=== PATIENT | male | born 1995 | race African-American/Black ===

== ENCOUNTER 2024-08-23 12:28 | Inpatient (IN) | payer MEDICAID ==
[~2024-08-23] VITALS: Ht 188 cm; Wt 74.3 kg
[2024-08-23 13:11] VITALS: O2SAT 95
[2024-08-23 13:43] LABS: ANION GAP 8 mmol/L (8-16); CALCIUM, TOTAL 8.6 mg/dL (8.8-10.5); CARBON DIOXIDE 27 mmol/L (22-29); CHLORIDE 102 mmol/L (98-107); CREATININE 0.75 mg/dL (0.60-1.30); GLOMERULAR FILTR. RATE CALC > 60 mL/min (>60); GLUCOSE,RANDOM 78 mg/dL (70-110); POTASSIUM 3.7 mmol/L (3.5-5.1); SODIUM SERUM 137 mmol/L (136-145); UREA NITROGEN, BLOOD 7 mg/dL (7-18)
[2024-08-23 13:44] LABS: BASOPHILS % (AUTO) 0.2 % (0.0-2.0); HEMATOCRIT 43.1 % (41-53); HEMOGLOBIN 13.5 g/dL (13.5-17.5); LYMPHOCYTES # (AUTO) 0.9 K/uL (1.0-4.8); LYMPHOCYTES % (AUTO) 7.2 % (22.0-44.0); MEAN CORPUSCULAR HEMOGLOBIN 25.3 pg (26.0-34.0); MEAN CORPUSCULAR HGB CONC 31.3 G/dL (31.0-37.0); MEAN CORPUSCULAR VOLUME 81 fL (80-100); MONOCYTES # (AUTO) 0.4 K/uL (0.1-1.0); MONOCYTES % (AUTO) 3.5 % (2.0-9.0); NEUTROPHILS # (AUTO) 10.9 K/uL (1.8-7.7); PLATELET COUNT (AUTO) 226 K/uL (150-450); RED BLOOD CELL COUNT(AUTO) 5.33 MIL/uL (4.50-5.90); RED CELL DISTRIBUTION WIDTH 16.7 % (11.5-14.5); WHITE BLOOD COUNT (AUTO) 12.4 K/uL (4.5-11.0)
[2024-08-23 13:49] LABS: NEUTROPHILS % (AUTO) 88.1 % (40.0-70.0)
[2024-08-23 13:54] LABS: COVID AG,FIA SOURCE NASAL SWAB
[2024-08-23 14:03] LABS: ALCOHOL, URINE DRUG SCREEN NEGATIVE (NEGATIVE); AMPHET/METH SCREEN,URINE NEGATIVE (NEGATIVE); BARBITURATE SCREEN, URINE NEGATIVE (NEGATIVE); BENZODIAZEPINES SCREEN,URINE NEGATIVE (NEGATIVE); CANNABINOID SCREEN,URINE POSITIVE (NEGATIVE); COCAINE SCREEN,URINE NEGATIVE (NEGATIVE); METHADONE SCREEN, URINE NEGATIVE (NEGATIVE); OPIATE SCREEN,URINE NEGATIVE (NEGATIVE); PHENCYCLIDINE SCREEN,URINE NEGATIVE (NEGATIVE)
[2024-08-23 14:04] LABS: APPEARANCE,URINE CLEAR (CLEAR); BILIRUBIN,URINE NEGATIVE (NEGATIVE); COLOR,URINE LIGHT YELLOW (YELLOW); GLUCOSE, URINE (UA) NEGATIVE (NEGATIVE); KETONES,URINE NEGATIVE (NEGATIVE); LEUKOCYTE ESTERASE ,URINE NEGATIVE (NEGATIVE); NITRATE,URINE NEGATIVE (NEGATIVE); OCCULT BLOOD,URINE NEGATIVE (NEGATIVE); PROTEIN,URINE NEGATIVE (NEGATIVE); SPECIFIC GRAVITIY, URINE 1.011 (1.003-1.030); UROBILINOGEN,URINE <=1.0 mg/dL (<=1.0)
[2024-08-23] MEDS: DiphenhydrAMINE HCL 50 MG/ML VIAL IM ONE (14:04)
[2024-08-23] MEDS: HALOPERIDOL LACTATE 5 MG/ML VIAL IM ONE (14:04)
[2024-08-23] MEDS: LORazepam 2 MG/ML VIAL IM ONE (14:04)
[2024-08-23 14:05] LABS: ALCOHOL, BLOOD (SERUM) < 3 mg/dL (0-10)
[2024-08-23 14:37] LABS: SARS-COV2 (COVID) ANTIGEN,FIA Negative (Negative)
[2024-08-23] MEDS ORDERED: TUBERCULIN, PURIFIED PROTEIN DERIVATIVE 5 TU/0.1 ML SYRINGE ID ONE (14:45)
[2024-08-23] MEDS ORDERED: GuaiFENesin/D-METHORPHAN [SUGAR-FREE] 200-20MG/10 ML SYRUP UDCUP PO PRN (14:45)
[2024-08-23] MEDS ORDERED: MELATONIN 5 MG TABLET PO PRN (14:45)
[2024-08-23] MEDS ORDERED: PROMETHAZINE HCL 25 MG TABLET PO PRN (14:45)
[2024-08-23] MEDS ORDERED: LOPERAMIDE HCL 2 MG CAPSULE PO PRN (14:45)
[2024-08-23] MEDS ORDERED: MAG HYDROX/ALUMINUM HYD/SIMETH ES 30 ML SUSPENSION UDCUP PO PRN (14:45)
[2024-08-23] MEDS ORDERED: MAGNESIUM HYDROXIDE SUSPENSION 30 ML UDCUP PO PRN (14:45)
[2024-08-23] MEDS ORDERED: QUEtiapine FUMARATE 100 MG TABLET PO PRN (14:45)
[2024-08-23] MEDS: THIAMINE 100 MG TABLET PO SCH (17:00)
[2024-08-23 17:27] VITALS: BP 133/66; PULSE 74; RESP 16; TEMP 98.1; O2SAT 96
[2024-08-23] MEDS: DIVALPROEX SODIUM 500 MG ER TABLET PO SCH (20:09)
[2024-08-23 20:39] VITALS: RESP 18
[2024-08-24 07:37] LABS: CHOL/HDL RATIO 3.4 (4.2-7.3); FREE T4 (FREE THYROXINE) 0.99 ng/dL (0.76-1.46); THYROID STIMULATING HORMONE 1.15 uIU/mL (0.36-3.74)
[2024-08-24] MEDS: OMEGA-3/DHA/EPA/FISH OIL 1,000 MG CAPSULE PO SCH (09:55)
[2024-08-24] MEDS: HydrOXYzine PAMOATE 50 MG CAPSULE PO PRN (09:56)
[2024-08-24] MEDS: FOLIC ACID 1 MG TABLET PO SCH (09:56)
[2024-08-24] MEDS: NALTREXONE HCL 50 MG TABLET PO SCH (09:56)
[2024-08-24] MEDS: MULTIVITAMINS WITH MINERALS, THERAPEUTIC TABLET PO SCH (09:56)
[2024-08-24] MEDS: FLUoxetine HCL 20 MG CAPSULE PO SCH (09:56)
[2024-08-24 10:56] VITALS: BP 123/74; PULSE 66; RESP 18; TEMP 98.1; O2SAT 98
[2024-08-24] MEDS: NICOTINE 21 MG/24 HOUR PATCH TD PRN (12:20)
[2024-08-24] MEDS: LORazepam 2 MG TABLET PO PRN (12:20)
[2024-08-24 18:09] VITALS: BP 131/78; PULSE 78; RESP 17; TEMP 98
[2024-08-24] MEDS: LURASIDONE HCL 40 MG TABLET PO PRN (18:09)
[2024-08-24] MEDS: ACETAMINOPHEN 325 MG TABLET PO PRN (18:09)
[2024-08-24] MEDS: LURASIDONE HCL 60 MG TABLET PO SCH (18:10)
[2024-08-24 19:09] VITALS: BP 129/76; PULSE 76; RESP 17; TEMP 97.8
[2024-08-24 20:52] VITALS: BP 104/62; PULSE 84; RESP 18; TEMP 98; O2SAT 97
[2024-08-25 08:24] VITALS: BP 130/79; PULSE 82; RESP 18; TEMP 97.9; O2SAT 97
[2024-08-25] MEDS ORDERED: OMEG100033 PO (17:14)
[2024-08-25] MEDS ORDERED: LURA60TA PO (17:14)
[2024-08-25] MEDS ORDERED: MELA5TAB40 PO (17:14)
[2024-08-25] MEDS ORDERED: NALT50TA33 PO (17:14)
[2024-08-25 20:48] VITALS: BP 107/66; PULSE 77; RESP 18; TEMP 97.8; O2SAT 96
[2024-08-26] MEDS: ZOLPIDEM TARTRATE 10 MG TABLET PO PRN (01:52)
== END 2024-08-26 08:00 | disposition home or self-care (01) | DRG 750 ==
LOC: EMS 12:28 → 3EC 16:01
PROVIDERS: ADMIT Psychiatry & Neurology Psychiatry; ATTEND Psychiatry & Neurology Psychiatry
PROC: GZHZZZZ Group Psychotherapy (ICD-10-PCS; principal; 2024-08-23)
PROC: GZ51ZZZ Individual Psychotherapy, Behavioral (ICD-10-PCS; 2024-08-23)
DX: F25.9 Schizoaffective disorder, unspecified (principal); G93.41 Metabolic encephalopathy; R45.851 Suicidal ideations; F12.90 Cannabis use, unspecified, uncomplicated; F14.90 Cocaine use, unspecified, uncomplicated; Z20.822 Contact with and (suspected) exposure to COVID-19; F17.200 Nicotine dependence, unspecified, uncomplicated; K50.90 Crohn's disease, unspecified, without complications; Z90.49 Acquired absence of other specified parts of digestive tract; Z91.52 Personal history of nonsuicidal self-harm
CPT/HCPCS: 80048; 80061; 80307; 81003; 83036; 84439; 84443; 85025; 86592; 96372; 99285; G0480